=== PATIENT | male | born 1955 | race African-American/Black ===

== ENCOUNTER 2024-07-06 22:43 | Emergency (ER) | payer OTHER ==
[~2024-07-06] VITALS: Ht 182.9 cm; Wt 105.7 kg
[2024-07-06] MEDS ORDERED: BLOOD PRESSURE PILL (23:02)
[2024-07-06] MEDS ORDERED: QUET200T PO (23:02)
[2024-07-06] MEDS ORDERED: SIMV10TA98 PO (23:02)
[2024-07-06 23:11] LABS: DIFFERENTIAL COMMENT 0; RED BLOOD CELL COUNT(AUTO) 4.35 MIL/uL (4.06-5.63); WHITE BLOOD COUNT (AUTO) 5.7 K/uL (3.6-10.2)
[2024-07-06 23:15] LABS: BASOPHILS % (AUTO) 0.7 % (0.0-2.0); CALCIUM 8.8 mg/dL (8.5-10.1); CARBON DIOXIDE 26 mmol/L (21-32); CHLORIDE 105 mmol/L (98-107); CREATININE 1.1 mg/dL (0.6-1.3); EOSINOPHILS # (AUTO) 0.2 K/uL (0.0-0.7); EOSINOPHILS % (AUTO) 3.8 % (0.0-7.0); GLUCOSE 138 mg/dL (74-106); HEMATOCRIT 42.1 % (36.7-47.1); HEMOGLOBIN 14.4 g/dL (12.5-16.3); LYMPHOCYTES # (AUTO) 2.3 K/uL (0.8-4.8); LYMPHOCYTES % (AUTO) 41.3 % (20.5-51.5); MEAN CORPUSCULAR HEMOGLOBIN 33.1 uug (23.8-33.4); MEAN CORPUSCULAR HGB CONC 34 g/dL (32.5-36.3); MEAN CORPUSCULAR VOLUME 96.8 fL (73.0-96.2); MONOCYTES # (AUTO) 0.3 K/uL (0.1-1.30); MONOCYTES % (AUTO) 5.4 % (0.0-11.0); NEUTROPHILS # (AUTO) 2.8 K/uL (1.8-8.9); NEUTROPHILS % (AUTO) 48.8 % (38.5-71.5); PLATELET COUNT (AUTO) 119 K/uL (152-348); POTASSIUM 3.7 mmol/L (3.5-5.1); RED CELL DISTRIBUTION WIDTH 13.9 % (12.1-16.2); SODIUM SERUM 142 mmol/L (136-145); UREA NITROGEN, BLOOD 11 mg/dL (7-18)
[2024-07-06 23:28] LABS: ALANINE AMINOTRANSFERASE 21 U/L (16-63); ALBUMIN 3.4 g/dL (3.4-5.0); ALKALINE PHOSPHATASE 60 U/L (50-136); ASPARTATE AMINOTRANSFERASE 9 U/L (15-37); BILIRUBIN,DIRECT 0.2 mg/dL (0.0-0.2); BILIRUBIN,TOTAL 0.4 mg/dL (0.2-1.0); NT-PRO BNP 14 pg/mL (0-125); TOTAL PROTEIN, SERUM 6.7 g/dL (6.4-8.2)
[2024-07-06] MEDS ORDERED: IV NORMAL SALINE 250 ML IV ONE (23:54)
[2024-07-06] MEDS ORDERED: SWABABLE VALVE TRANSFER SET EA MC ONE (23:54)
[2024-07-06] MEDS ORDERED: IOHEXOL 350 100 ML INFUS..BTL ONE (23:54)
[2024-07-07] MEDS: IV NORMAL SALINE 1000 ML BAG IV ONE (01:22)
[2024-07-07] MEDS: ASPIRIN 81 MG TAB.CHEW PO ONE (02:57)
[2024-07-07] MEDS ORDERED: ASPIRIN 81 MG TAB.CHEW ONE ×2 (02:58→03:02)
[2024-07-07 07:45] VITALS: O2SAT 97
== END 2024-07-07 07:53 | disposition short-term general hospital (02) ==
LOC: ER 22:45
DX: R00.2 Palpitations (principal); E78.5 Hyperlipidemia, unspecified; K21.9 Gastro-esophageal reflux disease without esophagitis; I10 Essential (primary) hypertension; Z79.899 Other long term (current) drug therapy; Z60.2 Problems related to living alone
CPT/HCPCS: 99285; 71275; 71045; 80076; 80048; 83880; 85025; 85379; 84484 ×3; 36415 ×2; 93005; 96360; Q9967; J7040; A4606; A4663